=== PATIENT | male | born 1990 ===

== ENCOUNTER 2021-01-29 16:30 | Outpatient (CLI) | payer BC | END 2021-01-29 16:31 | disposition home or self-care (01) | LOC: SLEEPLAB 16:30 | PROVIDERS: ATTEND Family Medicine | DX: G47.33 Obstructive sleep apnea (adult) (pediatric) (principal); R53.83 Other fatigue; R51.9 Headache, unspecified; E66.9 Obesity, unspecified; R06.83 Snoring; R35.1 Nocturia; Z68.42 Body mass index [BMI] 45.0-49.9, adult | CPT/HCPCS: 95806 ==